=== PATIENT | female | born 1975 | race Hispanic/Latino ===

== ENCOUNTER 2021-02-16 15:11 | Inpatient (IN) | payer BC ==
[~2021-02-16] VITALS: Ht 160 cm; Wt 59.0 kg
[2021-02-16] MEDS ORDERED: DEXAMETHASONE SOD PHOS INJ 4 MG/ML VIAL IV ONE (15:45)
[2021-02-16 16:02] LABS: BASOPHILS % 0.1 % (0.0-1.0); EOSINOPHILS % 0.1 % (0.0-6.0); HEMATOCRIT 41.9 % (34.2-44.1); HEMOGLOBIN 13.4 g/dL (12.0-16.0); LYMPHOCYTES # (AUTO) 3.1 (1.0-3.2); LYMPHOCYTES % 43.7 % (18.0-39.1); MEAN CORPUSCULAR HEMOGLOBIN 27.1 pg (28-32); MEAN CORPUSCULAR VOLUME 84.8 fL (81-99); MONOCYTES # (AUTO) 0.4 (0.2-0.8); NEUTROPHILS # (AUTO) 3.5 (2.1-6.9); NEUTROPHILS % 49.4 % (38.7-80.0); PLATELET COUNT 212 x10e3/uL (140-360); RED BLOOD COUNT 4.94 x10e6/uL (3.6-5.1); RED CELL DISTRIBUTION WIDTH 11.7 % (11.7-14.4)
[2021-02-16 16:33] LABS: ALBUMIN 3.8 g/dL (3.5-5.0); ALBUMIN/GLOBULIN RATIO 0.8 (0.8-2.0); ANION GAP 18.3 mmol/L (8-16); CALCIUM 9.6 mg/dL (8.4-10.2); CREATININE, SERUM 0.82 mg/dL (0.57-1.11); POTASSIUM 3.3 mmol/L (3.5-5.1)
[2021-02-16 16:53] LABS: INR 0.98; PROTHROMBIN TIME 13.2 seconds (11.9-14.5)
[2021-02-16] MEDS ORDERED: REMDESIVIR 200MG/NS 100ML 200 MG in SODIUM CHLORIDE 0.9% 100 ML 100 ML IV ONE (18:00)
[2021-02-16] MEDS ORDERED: ZOLPIDEM TARTRATE 5 MG TAB PO PRN (21:00)
[2021-02-16 21:33] LABS: LYMPHOCYTES % (MANUAL) 32 % (19-48); MONOCYTES % (MANUAL) 5 % (3.4-9.0); NEUTROPHILS % (MANUAL) 57 % (40-74); PLATELET ESTIMATE ADEQUATE; PLATELET MORPHOLOGY COMMENT NORMAL; RBC MORPHOLOGY COMMENT NORMAL
[2021-02-17] VITALS (7 sets, daily range): BP systolic 107–116; BP diastolic 72–81
[2021-02-17] MEDS ORDERED: SINGULAIR10 MG PO (05:30)
[2021-02-17] MEDS ORDERED: ATORVASTATIN CA20 MG PO (05:30)
[2021-02-17] MEDS: LEVOTHYROXINE SODIUM 50 MCG TAB PO SCH (05:30)
[2021-02-17] MEDS ORDERED: METHOCARBAMOL500 MG PO (05:30)
[2021-02-17] MEDS ORDERED: LISINOPRIL10 MG PO (05:30)
[2021-02-17] MEDS ORDERED: ELIQUIS2.5 MG PO (05:30)
[2021-02-17] MEDS: THIAMINE HCL INJ 100 MG/ML 2ML VIAL IV SCH (09:59)
[2021-02-17] MEDS: APIXAB 2.5 MG TABLET PO SCH ×2 (09:59→17:15)
[2021-02-17] MEDS: ASCORBIC ACID 500 MG TAB PO SCH ×2 (09:59→17:14)
[2021-02-17] MEDS: ZINC SULFATE 220 MG CAP PO SCH (09:59)
[2021-02-17] MEDS ORDERED: SODIUM CHLORIDE 0.9% 250ML 250 ML ONE (13:53)
[2021-02-17] MEDS: REMDESIVIR 100MG/NS 100ML 100 MG in SODIUM CHLORIDE 0.9% 100 ML 100 ML IV SCH (14:06)
[2021-02-17] MEDS ORDERED: POTASSIUM CHLORIDE 10MEQ EA PO ONE (14:55)
[2021-02-17 16:40] LABS: BASOPHILS % 0.3 % (0.0-1.0); EOSINOPHILS % 0.2 % (0.0-6.0); HEMATOCRIT 38.9 % (34.2-44.1); HEMOGLOBIN 12.1 g/dL (12.0-16.0); LYMPHOCYTES # (AUTO) 2.6 (1.0-3.2); LYMPHOCYTES % 45.1 % (18.0-39.1); MEAN CORPUSCULAR HEMOGLOBIN 26.7 pg (28-32); MEAN CORPUSCULAR HGB CONC 31.1 g/dL (31-35); MEAN CORPUSCULAR VOLUME 85.7 fL (81-99); MONOCYTES # (AUTO) 0.5 (0.2-0.8); MONOCYTES % 8.3 % (4.4-11.3); NEUTROPHILS # (AUTO) 2.6 (2.1-6.9); NEUTROPHILS % 45.6 % (38.7-80.0); PLATELET COUNT 200 x10e3/uL (140-360); RED BLOOD COUNT 4.54 x10e6/uL (3.6-5.1); RED CELL DISTRIBUTION WIDTH 11.8 % (11.7-14.4)
[2021-02-17 17:02] LABS: ALBUMIN 3.2 g/dL (3.5-5.0); ALBUMIN/GLOBULIN RATIO 0.7 (0.8-2.0); ANION GAP 18.8 mmol/L (8-16); CALCIUM 9.6 mg/dL (8.4-10.2); CREATININE, SERUM 0.72 mg/dL (0.57-1.11); POTASSIUM 3.8 mmol/L (3.5-5.1)
[2021-02-17] MEDS: DEXAMETHASONE SOD PHOS 10 MG/1 ML VIAL IV SCH (17:15)
[2021-02-18] VITALS (8 sets, daily range): BP systolic 99–127; BP diastolic 68–94
[2021-02-18] MEDS: ONDANSETRON HCL INJ 2MG/ML 2ML 2 MG/ML VIAL IV PRN ×2 (02:30→18:28)
[2021-02-18] MEDS: LEVOTHYROXINE SODIUM 50 MCG TAB PO SCH (05:30)
[2021-02-18 05:48] LABS: BASOPHILS % 0.2 % (0.0-1.0); HEMATOCRIT 36.4 % (34.2-44.1); HEMOGLOBIN 11.7 g/dL (12.0-16.0); LYMPHOCYTES # (AUTO) 1.6 (1.0-3.2); LYMPHOCYTES % 28.4 % (18.0-39.1); MEAN CORPUSCULAR HGB CONC 32.1 g/dL (31-35); MEAN CORPUSCULAR VOLUME 84.1 fL (81-99); MONOCYTES # (AUTO) 0.5 (0.2-0.8); MONOCYTES % 8.1 % (4.4-11.3); NEUTROPHILS # (AUTO) 3.5 (2.1-6.9); NEUTROPHILS % 62.8 % (38.7-80.0); PLATELET COUNT 227 x10e3/uL (140-360); RED BLOOD COUNT 4.33 x10e6/uL (3.6-5.1); RED CELL DISTRIBUTION WIDTH 11.5 % (11.7-14.4)
[2021-02-18 06:12] LABS: ALBUMIN 3.3 g/dL (3.5-5.0); ALBUMIN/GLOBULIN RATIO 0.8 (0.8-2.0); ANION GAP 16.8 mmol/L (8-16); CALCIUM 9.4 mg/dL (8.4-10.2); CREATININE, SERUM 0.66 mg/dL (0.57-1.11); POTASSIUM 4.8 mmol/L (3.5-5.1)
[2021-02-18] MEDS: DEXAMETHASONE SOD PHOS 10 MG/1 ML VIAL IV SCH (10:52)
[2021-02-18] MEDS: APIXAB 2.5 MG TABLET PO SCH ×2 (10:53→16:20)
[2021-02-18] MEDS: THIAMINE HCL INJ 100 MG/ML 2ML VIAL IV SCH (10:53)
[2021-02-18] MEDS: ASCORBIC ACID 500 MG TAB PO SCH ×2 (10:54→16:20)
[2021-02-18] MEDS: ZINC SULFATE 220 MG CAP PO SCH (10:54)
[2021-02-18] MEDS: IPRATROPIUM/ALBUTEROL SULFATE 4 GM INH INH SCH (13:00)
[2021-02-18] MEDS: REMDESIVIR 100MG/NS 100ML 100 MG in SODIUM CHLORIDE 0.9% 100 ML 100 ML IV SCH (16:20)
[2021-02-19] VITALS (9 sets, daily range): BP systolic 103–122; BP diastolic 76–105
[2021-02-19] MEDS: LEVOTHYROXINE SODIUM 50 MCG TAB PO SCH (05:46)
[2021-02-19] MEDS: IPRATROPIUM/ALBUTEROL SULFATE 4 GM INH INH SCH ×3 (07:00→19:00)
[2021-02-19] MEDS: ASCORBIC ACID 500 MG TAB PO SCH ×2 (10:21→17:02)
[2021-02-19] MEDS: APIXAB 2.5 MG TABLET PO SCH ×2 (10:21→17:02)
[2021-02-19] MEDS: ZINC SULFATE 220 MG CAP PO SCH (10:21)
[2021-02-19] MEDS: THIAMINE HCL INJ 100 MG/ML 2ML VIAL IV SCH (10:23)
[2021-02-19] MEDS: DEXAMETHASONE SOD PHOS 10 MG/1 ML VIAL IV SCH (10:26)
[2021-02-19] MEDS: REMDESIVIR 100MG/NS 100ML 100 MG in SODIUM CHLORIDE 0.9% 100 ML 100 ML IV SCH (17:02)
[2021-02-19] MEDS: ONDANSETRON HCL INJ 2MG/ML 2ML 2 MG/ML VIAL IV PRN (19:06)
[2021-02-20] VITALS: BP 122/92
[2021-02-20 05:32] VITALS: BP 128/90
[2021-02-20] MEDS: LEVOTHYROXINE SODIUM 50 MCG TAB PO SCH (05:46)
[2021-02-20 08:11] VITALS: BP 128/90
[2021-02-20 09:41] VITALS: BP 125/94
[2021-02-20] MEDS: THIAMINE HCL INJ 100 MG/ML 2ML VIAL IV SCH (09:46)
[2021-02-20] MEDS: APIXAB 2.5 MG TABLET PO SCH (09:46)
[2021-02-20] MEDS: DEXAMETHASONE SOD PHOS 10 MG/1 ML VIAL IV SCH (09:46)
[2021-02-20] MEDS: ASCORBIC ACID 500 MG TAB PO SCH (09:46)
[2021-02-20] MEDS: ZINC SULFATE 220 MG CAP PO SCH (09:46)
[2021-02-20 12:46] VITALS: BP 112/79
[2021-02-20] MEDS: REMDESIVIR 100MG/NS 100ML 100 MG in SODIUM CHLORIDE 0.9% 100 ML 100 ML IV SCH (13:39)
[2021-02-20 17:09] VITALS: BP 115/85
== END 2021-02-20 17:36 | disposition home or self-care (01) | DRG 177 ==
LOC: ER 15:23 → ERHOLD 16:43 → IMCU 02-17 04:10
PROC: 3E0333Z Introduction of Anti-inflammatory into Peripheral Vein, Percutaneous Approach (ICD-10-PCS; principal; 2021-02-16)
PROC: XW033E5 Introduction of Remdesivir Anti-infective into Peripheral Vein, Percutaneous Approach, New Technology Group 5 (ICD-10-PCS; 2021-02-16)
DX: U07.1 COVID-19 (principal); J12.82 Pneumonia due to coronavirus disease 2019; J96.00 Acute respiratory failure, unspecified whether with hypoxia or hypercapnia; D68.59 Other primary thrombophilia; Z86.718 Personal history of other venous thrombosis and embolism; I10 Essential (primary) hypertension; Z88.5 Allergy status to narcotic agent; Z88.8 Allergy status to other drugs, medicaments and biological substances; J45.909 Unspecified asthma, uncomplicated; E03.9 Hypothyroidism, unspecified; Z98.84 Bariatric surgery status; E87.6 Hypokalemia; Z88.0 Allergy status to penicillin
CPT/HCPCS: 36415; 71045; 80053; 82948; 84484; 85025; 85379; 85610; 86140; 93005; 99284; J0456; J1100; J2405; J3411; J7050; U0002